=== PATIENT | female | born 1965 | race African-American/Black ===

== ENCOUNTER 2022-11-15 18:49 | Emergency (ER) | payer OTHER ==
[2022-11-15 18:59] VITALS: BP 154/89; PULSE 98; RESP 18; TEMP 98.4; BMI 28.6
[2022-11-15] MEDS ORDERED: FLUCONAZOLE 150 MG TABLET PO ONE ×2 (19:43→19:44)
[2022-11-15] MEDS ORDERED: ACETAMINOPHEN 500 MG TABLET (FP) ONE (19:44)
[2022-11-15] MEDS ORDERED: ACETAMINOPHEN 500 MG TABLET (FP) PO ONE (19:47)
== END 2022-11-15 20:09 | disposition home or self-care (01) ==
LOC: JERFT 18:49 → JER 18:49 → JERFT 20:09
DX: B37.31 Acute candidiasis of vulva and vagina (principal)
CPT/HCPCS: 99283-25